=== PATIENT | male | born 1945 | race Caucasian/White ===

== ENCOUNTER 2016-07-10 01:01 | Day surgery (SDC) | payer MEDICARE, OTHER ==
[~2016-07-10] VITALS: Ht 185.4 cm; Wt 118.0 kg
[2016-07-10] VITALS (7 sets, daily range): BP systolic 133–185; BP diastolic 66–103; PULSE 64–117; RESP 16; O2SAT 98
[~2016-07-10 01:01] MED LIST: ATEN50TA PO; COU5 PO; HYDR25TA4 PO; LISI40TA PO; PRV40T PO
[2016-07-10] MEDS ORDERED: HYDR25TA4 PO (11:47)
[2016-07-10] MEDS ORDERED: PRV40T PO (11:47)
[2016-07-10] MEDS ORDERED: WARF5TAB7 PO (11:47)
[2016-07-10] MEDS ORDERED: Methohexital 10 mg/mL 50 mL Inj IV ONE (11:51)
--- NOTE | 2016-07-10 13:05 | OP ---
[address] [address] OPERATIVE REPORT PATIENT: CALIXTO ALMEIDA : 1945 MR#: [id number] ADMIT: 07/10/2016 JOB ID: [id number] DATE OF SURGERY: 07/10/2016 SURGEON: Sharad Moran MD. PREOPERATIVE DIAGNOSIS(ES): POSTOPERATIVE DIAGNOSIS(ES): PROCEDURE: Cardioversion. INDICATIONS: The patient developed persistent atypical atrial flutter about a week ago. He has been taking 50 mg of atenolol daily and he has been well anticoagulated. His pro-time this morning is therapeutic at 2.8, and he presents for elective cardioversion. On previous cardioversions, he has required more than the usual sedation and he is n.p.o. and consents to the procedure. The patient was prepped in the standard fashion. He was given a mg of Versed and 60 mg of Brevital, which actually produced excellent sedation. He was cardioverted using a 200-joule biphasic shock delivered through anterior-posterior patches and converted promptly to normal sinus rhythm with moderate sinus bradycardia. The patient tolerated the procedures without difficulty or complications. Will observe him in the [facility] until he is recovered and then he can head back to [facility] where he lives and get an EKG in a couple of weeks to send us or he can come back over to our office for an EKG in a couple of weeks.
--- NOTE | 2016-07-10 13:07 | NUR ---
Pt discharged to home, ambulatory, accompanied by spouse. Pt's VSS, in NSR, IV discontinued. Pt given all discharge instructions and had no further questions at time of d/c.
== END 2016-07-10 23:59 | disposition home or self-care (01) ==
LOC: SPI 01:01
PROVIDERS: ATTEND Internal Medicine Cardiovascular Disease
DX: I48.0 Paroxysmal atrial fibrillation (principal); I25.10 Atherosclerotic heart disease of native coronary artery without angina pectoris; I10 Essential (primary) hypertension; G47.33 Obstructive sleep apnea (adult) (pediatric); Z79.01 Long term (current) use of anticoagulants; Z95.1 Presence of aortocoronary bypass graft
CPT/HCPCS: 92960; 93005; 99152; J2250

== ENCOUNTER 2016-08-15 08:28 | Inpatient (IN) | payer MEDICARE, OTHER ==
[~2016-08-15] VITALS: Ht 185.4 cm; Wt 121.5 kg
[2016-08-15] VITALS (7 sets, daily range): BP systolic 115–132; BP diastolic 71–97; PULSE 55–115; RESP 17–19; O2SAT 97–99
[~2016-08-15 08:28] MED LIST changes: -COU5 PO; +WARF5TAB7 PO
[2016-08-15] MEDS ORDERED: Alum-Mag Hydrox-Simeth 30 mL Suspension PO PRN (08:35)
[2016-08-15] MEDS ORDERED: Polyethylene Glycol (PEG) 17 Gm Powder PO PRN (08:35)
[2016-08-15 09:54] LABS: INR 3.01 ratio
[2016-08-15 09:58] LABS: Magnesium 1.9 mg/dL (1.6-2.6)
[2016-08-15] MEDS ORDERED: Lisinopril 40 Tablet PO SCH (16:25)
--- NOTE | 2016-08-15 17:39 | HP ---
[address] [address] HISTORY AND PHYSICAL PATIENT: CALIXTO ALMEIDA : 1945 MR#: [id number] ADMIT: 08/15/2016 JOB ID: [id number] REASON FOR ADMISSION: New antiarrhythmic therapy for atrial fibrillation. CHIEF COMPLAINT: Exertional fatigue and dyspnea along with rapid palpitations. BRIEF HISTORY: The patient is a very pleasant 70-year-old man with a history of ischemic heart disease with prior AC bypass graft surgery and he has also a long history of atrial fibrillation and an atypical atrial flutter. He has been treated in the past with amiodarone and with dronedarone and these have been particularly successful. He has been cardioverted by his description multiple times and also has spontaneous conversions. In recent months his atrial fibrillation has become much more persistent and he is symptomatic to where he really cannot exercise without symptoms. He was offered a trial of a new antiarrhythmic therapy for him, dofetilide, and that is the reason for this hospitalization. PAST HISTORY: Coronary artery disease since 2010. Arrhythmia has been known since 1995. Other problems include aortic valve insufficiency, hypertension, pleural effusion. ALLERGIES: No known allergies. REVIEW OF SYSTEMS: At present he is asymptomatic when at rest. He is a well developed, well nourished, middle aged man in no distress. Skin: Well tanned, with no rash. Respiratory: No dyspnea. Endocrine: No intolerance of hot or cold. Psych: No anxiety. Cardiac: Palpitations but no chest pain, claudication, or edema. Heme: No easy bleeding or bruising. Neuro: No dizziness. Eyes: No visual changes. GI: No blood in the stool. No heartburn. Muscle: No muscular weakness. : No hematuria. VITAL SIGNS: On admission pulse was 115 per minute, BP 132/97, oximetry 97% on room air. A few hours later the pulse rate had dropped to 58 BPM and BP 115/80, oximetry 99% on room air. PHYSICAL EXAMINATION: Constitutional: No acute distress. Well developed, well nourished. Head and face: Normal facial features. Normal hair and scalp. Skin is normal. Eyes: PERRLA. Neck: No JVD. Carotid pulses are present and equal and without bruits. No thyromegaly. Chest: Breath sounds are full and clear in all banks. Cardiac: Elevated but regular rhythm, normal S1 and S2, and no murmurs. Abdomen: Soft and nontender, bowel sounds present. No organomegaly detected. Extremities: No cyanosis or edema, pulses intact. Neurological: The neuro exam is grossly normal. Psychiatric: Well oriented to time, place, person, and situation, appropriate mood and affect. ASSESSMENT: Persistent atrial flutter, atypical pattern, with tachycardia, history of coronary artery disease. PLAN: Start the patient on new antiarrhythmic therapy for the atrial arrhythmias with dofetilide 500 mcg q.12 hours and record 12-lead ECGs after each dose to observe for abnormal prolongation of the QT interval. Baseline QT was 343 msec with a heart rate of 114 per minute and after the first dose of Tikosyn the pulse rate had dropped to 58 BPM and the QT interval was 436 with a QTc of 429, which is normal. Blood chemistry shows potassium normal at 4.3, creatinine 1.01, estimated GFR 78, magnesium 1.9. All these measures allow for continuation of the dofetilide dose at 500 mcg. If he does not spontaneously convert, we may consider electrical cardioversion on the third day.
[2016-08-16] VITALS (9 sets, daily range): BP systolic 112–134; BP diastolic 63–96; PULSE 65–114; RESP 17–20; O2SAT 95–98
[2016-08-16 03:12] LABS: INR 3.12 ratio
--- NOTE | 2016-08-16 09:34 | PROG NOTE ---
[address] [address] PROGRESS NOTE PATIENT: CALIXTO ALMEIDA : 1945 MR#: [id number] ADMIT: 08/15/2016 JOB ID: [id number] DATE: 08/16/2016 CHIEF COMPLAINT: Exertional fatigue and dyspnea with rapid palpitations. SUBJECTIVE: The patient is a pleasant 70-year-old man with a long history of atrial fibrillation and was admitted yesterday to start new antiarrhythmic therapy with dofetilide. This morning he is resting comfortably in his room and has no complaints of any side effects from the medication. He continues to have palpitations, but is in no distress and is not short of breath or having chest pain. He has been ambulatory without any difficulties particularly no lightheadedness or dizziness. OBJECTIVE: The patient has had 2 doses of dofetilide at this time and his 12-lead ECG showed an increase of the QT interval from 343 msec to 363 msec which is well within the 15% increase allowable. Lab data shows INR this morning of 3.12. PHYSICAL EXAMINATION: Vital signs are stable with BP 112/76, pulse 96, respirations 18, and oximetry 98% on room air. His physical exam was unchanged from yesterday. ASSESSMENT: Satisfactory start of new antiarrhythmic therapy with dofetilide 500 mcg q.12 hours. The electrocardiogram shows only a slight increase in the QT interval and the patient has no side effect symptoms. PLAN: Continue dofetilide at 500 mcg q.12 hours with EKG 2 hours after each dose. If he does not spontaneously convert today, then will plan on doing a cardioversion at noon tomorrow.
[2016-08-17] VITALS (10 sets, daily range): BP systolic 98–152; BP diastolic 52–83; PULSE 66–110; RESP 12–19; O2SAT 96–99
[2016-08-17 00:53] LABS: APPEARANCE,URINE CLEAR (CLEAR,HAZY); COLOR,URINE YELLOW (YELLOW); OCCULT BLOOD,URINE NEGATIVE (NEGATIVE); UROBILINOGEN,URINE NORMAL (NORMAL)
[2016-08-17 02:59] LABS: INR 2.81 ratio
[2016-08-17] MEDS ORDERED: Methohexital 10 mg/mL 50 mL Inj ONE (11:16)
[2016-08-17] MEDS ORDERED: Flumazenil 0.1 mg/mL 5 mL Inj IV ONE (11:16)
[2016-08-17] MEDS ORDERED: Atropine 1 mg/10 mL (Code) Syringe ONE (11:17)
--- NOTE | 2016-08-17 12:56 | PCM.DIMED ---
Discharge Instructions Date of Service Aug 17, 2016 Dates of Hospitalization Aug 15, 2016 at 08:28 Discharge Diagnosis Discharge Diagnosis Persistent Atrial Flutter Atrial fibrillation CAD Hypertension Diet Discharge Diet: Heart Healthy Activity Discharge Activity: No restrictions Call your provider Call your provider for: Weakness (unilateral) Patient Instructions Mid-level Provider (F9): Diego Liang PA-C Follow-up with Mid-level in: 4 weeks Diego Liang PA-C Aug 17, 2016 12:56
[2016-08-17] MEDS ORDERED: DOFE500C3 PO (12:59)
--- NOTE | 2016-08-17 13:27 | PROCED ---
[address] [address] PROCEDURE NOTE PATIENT: CALIXTO ALMEIDA : 1945 MR#: [id number] ADMIT: 08/15/2016 JOB ID: [id number] DATE OF SERVICE: 08/17/2016 PREOPERATIVE DIAGNOSIS(ES): Atrial fibrillation. POSTOPERATIVE DIAGNOSIS(ES): Sinus rhythm. PROCEDURE PERFORMED: Direct-current cardioversion. SURGEON: Akin Garrett MD, electrophysiology. LOCAL COORDINATOR: Diego Liang PA-C. SEDATION: 1 mg of Versed and 60 mg of Brevital were utilized for appropriate level of sedation. INDICATION: The patient is a pleasant 71-year-old man with previous atrial fibrillation and flutter ablation who comes in with atypical atrial flutter. He underwent dofetilide loading and is here for a direct- current cardioversion after discussion of the risks and benefits of the procedure and appropriate anticoagulation. PROCEDURE: After obtaining informed consent, the patient was taken to the fasting state where defibrillator patches were placed in the anterior and posterior positions. After adequate sedation, a 200-joule biphasic synchronized shock was used to put him in sinus rhythm. He will be allowed to recover and discharged home for close followup. COMPLICATIONS: None. ESTIMATED BLOOD LOSS: None IMPRESSION: Successful direct-current cardioversion. PLAN: 1. Recovery and discharge today. 2. Continue dofetilide and anticoagulation. 3. Follow up with myself and Diego Liang in clinic in 3-4 weeks. ATTENDING STATEMENT: IAkin MD, electrophysiology, was present for and performed/supervised all aspects of this procedure.
--- NOTE | 2016-08-17 13:49 | DIS ---
[address] [address] DISCHARGE SUMMARY PATIENT: CALIXTO ALMEIDA : 1945 MR#: [id number] ADMIT: 08/15/2016 JOB ID: [id number] DIS: REASON FOR ADMISSION: To start new antiarrhythmic therapy for atrial fibrillation with dofetilide. CHIEF COMPLAINT: Weakness and fatigue in atrial fibrillation due to the rapid rate. BRIEF HISTORY: The patient is a delightful 70-year-old man with a history of silent ischemic heart disease, prior coronary bypass graft surgery, and a long history of atrial fibrillation and flutter. He underwent an atrial fibrillation ablation procedure in 2011 and has more recently been in persistent atypical atrial flutter. He has been previously treated with amiodarone and dronedarone but these have been unsuccessful. He was admitted to the hospital for the new therapy with dofetilide. COURSE IN HOSPITAL: The patient was admitted to the [facility] and, after baseline ECG and labs, he received dofetilide 500 mcg capsules q.12 h. and had 12-lead ECGs recorded two hours after each dose. His QT intervals remained stable and within 15% change from baseline. The patient remained in atrial flutter throughout the hospitalization and often had rates in the 120s to 140s per minute. On the third day he was cardioverted to sinus rhythm successfully. After conversion, his rhythm was sinus rhythm at 72 BPM with a QT of 439 msec and a QTc of 481 msec. He felt well. This medication and has had no side effects. DISPOSITION: The patient was discharged home in good condition with a followup appointment at the [facility] office in one month. He has no activity restrictions. He will continue to follow his heart healthy diet and take medications as prescribed. He has no complaints at this time of shortness of breath, unilateral weakness, chest pain, or dizziness. DISCHARGE MEDICATIONS: Dofetilide 500 mcg q.12 h., atenolol 50 mg daily p.r.n. heart rate above 100, lisinopril 40 mg daily, pravastatin 60 mg q.h.s., Warfarin 5 mg daily or as directed by his anticoagulation clinic. Hydrochlorothiazide has been stopped due to potential interaction with dofetilide. FINAL DIAGNOSES: 1. Coronary artery disease. 2. Atrial fibrillation. Persistent atypical atrial flutter. 3. Hypertension.
== END 2016-08-17 15:38 | disposition home or self-care (01) | DRG 310 ==
LOC: PCC 08:28
PROVIDERS: ADMIT Internal Medicine Cardiovascular Disease; ATTEND Internal Medicine Cardiovascular Disease
PROC: 5A2204Z Restoration of Cardiac Rhythm, Single (ICD-10-PCS; principal; 2016-08-17)
DX: I48.4 Atypical atrial flutter (principal); I25.10 Atherosclerotic heart disease of native coronary artery without angina pectoris; I10 Essential (primary) hypertension

== ENCOUNTER 2016-11-21 00:34 | Day surgery (SDC) | payer MEDICARE, OTHER ==
[~2016-11-21] VITALS: Ht 182.9 cm; Wt 118.0 kg
[~2016-11-21 00:34] MED LIST changes: +DOFE500C3 PO; -HYDR25TA4 PO
[2016-11-21 15:25] VITALS: BP 141/93; PULSE 103; RESP 16; O2SAT 97
[2016-11-21 15:29] LABS: BASOPHILS % (AUTO) 0.4 % (0-3); EOSINOPHILS % (AUTO) 1.3 % (0-5); MONOCYTES % (AUTO) 8.2 % (4-12); Mean Corpuscular Hemoglobin 30.3 pg (27.0-35.0); Mean Corpuscular Volume 84.7 fL (81-100); NEUTROPHILS % (AUTO) 66.1 % (40-74); Platelet Count 180 bil/L (150-400)
[2016-11-21 15:43] LABS: INR 2.63 ratio
[2016-11-21] MEDS ORDERED: Methohexital 10 mg/mL 50 mL Inj ONE (16:26)
--- NOTE | 2016-11-21 17:30 | NUR ---
Pt discharged to home, ambulatory, accompanied by spouse. Pt's VSS, in SR-SB at time of d/c. Pt given all discharge instructions and had no further questions at time of d/c.
--- NOTE | 2016-11-21 19:31 | PROCED ---
[address] [address] PROCEDURE NOTE PATIENT: CALIXTO ALMEIDA : 1945 MR#: [id number] ADMIT: 11/21/2016 JOB ID: [id number] DATE OF SERVICE: 11/21/2016 PREOPERATIVE DIAGNOSIS(ES): Atrial fibrillation. POSTOPERATIVE DIAGNOSIS(ES): Sinus rhythm. PROCEDURE PERFORMED: Direct current cardioversion. SURGEON: Rod Pointer: Akin Garrett MD, electrophysiology attending SEDATION: Versed 1 mg and 40 mg of Brevital were utilized for an appropriate level of sedation. INDICATION: The patient is a pleasant 71-year-old with recurrent symptomatic atrial fibrillation. He has been appropriately anticoagulated with warfarin. After a discussion of the risks and benefits of cardioversion, he opted to proceed. PROCEDURE DESCRIPTION: Following informed consent, the patient was taken to the procedure suite in a fasting state where defibrillator patches were placed in the anterior and posterior positions. After adequate sedation, a 200 joule biphasic synchronized shock was used to convert him to sinus rhythm. He will be allowed to recover and discharged home for close followup. COMPLICATIONS: None. BLOOD LOSS: Not applicable. IMPRESSIONS: Successful direct current cardioversion. PLAN: 1. Recovery and discharge from the [facility]. 2. Continue anticoagulation and dofetilide. 3. Follow up with me in clinic in four weeks to discuss ablation. ATTENDING STATEMENT: Akin Garrett MD, electrophysiology attending, was present for and supervised/performed all aspects of this procedure.
== END 2016-11-21 19:35 | disposition home or self-care (01) ==
LOC: SOUO 00:34 → PCC 18:39 → SOUO 19:35
PROVIDERS: ATTEND Internal Medicine Cardiovascular Disease
DX: I48.0 Paroxysmal atrial fibrillation (principal); Z79.01 Long term (current) use of anticoagulants; I25.10 Atherosclerotic heart disease of native coronary artery without angina pectoris; Z95.1 Presence of aortocoronary bypass graft; I35.1 Nonrheumatic aortic (valve) insufficiency; I10 Essential (primary) hypertension; I48.92 Unspecified atrial flutter
CPT/HCPCS: 36415; 80048; 85025; 85610; 92960; 93005; 94799; 99152; J2250